=== PATIENT | female | born 1950 | race Caucasian/White ===

== ENCOUNTER → 2018-07-28 | Outpatient (CLI) | payer MEDICARE ==
--- NOTE | 2018-07-28 09:51 | KCIC ---
Renal ultrasound 07/28/2018 INDICATION: Recurrent UTIs. COMPARISON STUDY: None. Discussion: Ultrasound evaluation of the kidneys was performed. Static images are submitted to PACS. Right kidney measures 11.1 x 6.1 x 5.2 cm. Left kidney measures 11.6 x 4.5 x 4.5 cm. There is no hydronephrosis, nephrolithiasis, or focal renal lesion identified. Limited visualization of the aorta is unremarkable. Visualized bladder is grossly unremarkable. Bilateral ureteral jets noted. IMPRESSION: Unremarkable sonographic appearance of the kidneys Electronically signed by: Juventino Suazo MD (07/28/2018 9:47 AM) [id number]
== END | disposition home or self-care (01) ==
LOC: KCIC US 08:30
PROVIDERS: ATTEND Physician Assistant Medical
DX: N39.0 Urinary tract infection, site not specified (principal); Z87.440 Personal history of urinary (tract) infections
CPT/HCPCS: 76770